=== PATIENT | male | born 1945 | race Two or more races ===

== ENCOUNTER 2023-03-09 14:24 | Inpatient (IN) | payer OTHER, MEDICAID ==
[~2023-03-09] VITALS: Ht 182.9 cm; Wt 91.5 kg
[2023-03-09 15:13] LABS: Basophils # (auto) 0 10 ^3/uL (0-0.2); Basophils % (auto) 0.1 % (0.0-2.0); Eosinophils # (auto) 0 10 ^3/uL (0-0.8); Hematocrit 33.8 % (41.0-53.0); Lymphocytes # (auto) 0.4 10 ^3/uL (0.4-5.4); Lymphocytes % (auto) 3.7 % (10.0-50.0); Mean Corpuscular Hemoglobin 28.4 pg (28.0-32.0); Mean Corpuscular Hgb Conc. 32.5 g/dL (32.0-36.0); Mean Corpuscular Volume 87.3 fL (80.0-100.0); Monocytes # (auto) 1.3 10 ^3/uL (0-1.3); Monocytes % (auto) 11.6 % (0.0-12.0); Neutrophils # (auto) 9.5 10 ^3/uL (1.6-8.6); Neutrophils % (auto) 84.6 % (37.0-80.0); Nucleated Red Blood Cells % 0.1 %; Red Blood Cells 3.87 10^6/uL (4.5-5.90); Red Cell Distribution Width 16.1 % (11.8-14.3); White Blood Cell 11.2 10^3/uL (4.4-10.8)
[2023-03-09 15:39] LABS: Albumin 3.3 g/dL (3.2-4.8); Alkaline Phosphatase 150 U/L (46-116); Anion Gap 9 (5-15); Aspartate Aminotransferase 26 U/L (13-40); BUN/Creatinine Ratio 22.6 (10.0-20.0); Blood Urea Nitrogen 19 mg/dL (9-23); Calcium 8.1 mg/dL (8.7-10.4); Carbon Dioxide 23 mmol/L (20-30); Chloride 103 mmol/L (98-107); Creatine Kinase IFCC 743 U/L (46-171); Glucose 204 mg/dL (74-106); Magnesium 1.6 mg/dL (1.6-2.6); Potassium 3.3 mmol/L (3.5-5.1); Sodium 135 mmol/L (136-145)
[2023-03-09 15:40] LABS: Alanine Aminotransferase < 9 U/L (7-40); Bilirubin, Total 1.5 mg/dL (0.2-1.0); Total Protein 5.6 g/dL (5.7-8.2)
[2023-03-09 16:09] LABS: Lactic Acid w/Reflex 2.3 mmol/L (0.4-2.0)
[2023-03-09 16:26] VITALS: PULSE 83; RESP 23; O2SAT 98
[2023-03-09 17:14] LABS: INR > 8.0 (0.9-1.15)
[2023-03-09] MEDS ORDERED: phytonadione 10 MG in SODIUM CHL 0.9% 50 ML IV ONE (17:30)
[2023-03-09] MEDS ORDERED: ONDANSETRON HCL 4 MG/2 ML VIAL IV ONE (18:00)
[2023-03-09 20:40] VITALS: PULSE 83; RESP 21; O2SAT 96
[2023-03-09] MEDS ORDERED: MORPHINE SULFATE INJ 2 MG/ml SYRG IV PRN (23:00)
[2023-03-09] MEDS ORDERED: PANTOPRAZOLE 40mg/50ML NS AE 50 ML IV ONE (23:00)
[2023-03-09] MEDS ORDERED: NITROGLYCERIN 0.4 MG SL TAB SL PRN (23:00)
[2023-03-09] MEDS: SODIUM CHLORIDE 0.9% 1,000 ML IV SCH (23:29)
[2023-03-10] VITALS (13 sets, daily range): BP systolic 136–154; BP diastolic 7–83; PULSE 58–90; RESP 16–23; TEMP 97.3–98.4; O2SAT 95–98
[2023-03-10] MEDS ORDERED: POTASSIUM EFFERVESENT TAB 25 MEQ PO ONE (01:15)
[2023-03-10 04:25] LABS: Urine Amorphous Crystal FEW /hpf (None Seen); Urine Bacteria NONE SEEN /hpf (None Seen); Urine Blood 3+ /uL (Negative); Urine Clarity HAZY (Clear); Urine Color Yellow (Yellow); Urine Mucus FEW (None Seen); Urine Protein, UAD 1+ (Negative); Urine Specific Gravity 1.026 (1.001-1.035); Urine WBC 4 /hpf (0 - 3)
[2023-03-10] MEDS ORDERED: WARF-112 PO (07:06)
[2023-03-10] MEDS ORDERED: TAMS0.4C36 PO (07:06)
[2023-03-10] MEDS: SODIUM CHLORIDE 0.9% 1,000 ML IV SCH ×3 (09:00→11:00)
[2023-03-10 09:22] LABS: Basophils # (auto) 0 10 ^3/uL (0-0.2); Basophils % (auto) 0.1 % (0.0-2.0); Eosinophils # (auto) 0 10 ^3/uL (0-0.8); Hematocrit 31.2 % (41.0-53.0); Hemoglobin 10.4 g/dL (13.5-17.5); Lymphocytes # (auto) 0.7 10 ^3/uL (0.4-5.4); Lymphocytes % (auto) 8.8 % (10.0-50.0); Mean Corpuscular Hemoglobin 28.6 pg (28.0-32.0); Mean Corpuscular Hgb Conc. 33.2 g/dL (32.0-36.0); Mean Corpuscular Volume 86.2 fL (80.0-100.0); Monocytes # (auto) 0.8 10 ^3/uL (0-1.3); Monocytes % (auto) 10.5 % (0.0-12.0); Neutrophils # (auto) 6.2 10 ^3/uL (1.6-8.6); Neutrophils % (auto) 80.6 % (37.0-80.0); Nucleated Red Blood Cells % 0.1 %; Red Blood Cells 3.62 10^6/uL (4.5-5.90); White Blood Cell 7.7 10^3/uL (4.4-10.8)
[2023-03-10 09:35] LABS: Chloride 104 mmol/L (98-107); Potassium 3.7 mmol/L (3.5-5.1); Sodium 138 mmol/L (136-145)
[2023-03-10 09:36] LABS: Anion Gap 7 (5-15); Calcium 8.4 mg/dL (8.5-10.1); Carbon Dioxide 27 mmol/L (20-30)
[2023-03-10 09:41] LABS: BUN/Creatinine Ratio 22.2 (10.0-20.0); Blood Urea Nitrogen 14 mg/dL (9-23); Glucose 121 mg/dL (74-106)
[2023-03-10 09:44] LABS: INR 1.44 (0.9-1.15); Prothrombin Time 14.8 sec (9.3-11.8)
[2023-03-10] MEDS: TAMSULOSIN HYDROCHLORIDE 0.4 MG CAP PO SCH (10:29)
[2023-03-10] MEDS: METOPROLOL TARTRATE 25 MG TAB PO SCH ×2 (10:29→22:00)
[2023-03-10 17:11] LABS: Hematocrit 29.7 % (41.0-53.0); Hemoglobin 9.9 g/dL (13.5-17.5)
[2023-03-10] MEDS: ONDANSETRON HCL 4 MG/2 ML VIAL IV PRN (18:31)
[2023-03-10] MEDS ORDERED: ENOXAPARIN SOD 40 MG/0.4 ML SYRINGE SC ONE ×2 (20:00→22:02)
[2023-03-10] MEDS: ATORVASTATIN 20 MG TAB PO SCH (22:09)
[2023-03-11] VITALS (7 sets, daily range): BP systolic 100–140; BP diastolic 67–73; PULSE 53–86; RESP 16–22; TEMP 97.5–98.6; O2SAT 95–98
[2023-03-11 00:30] LABS: Hematocrit 30.5 % (41.0-53.0)
[2023-03-11 06:58] LABS: Basophils # (auto) 0 10 ^3/uL (0-0.2); Basophils % (auto) 0.1 % (0.0-2.0); Eosinophils # (auto) 0 10 ^3/uL (0-0.8); Eosinophils % (auto) 0.1 % (0.0-7.0); Hemoglobin 10.2 g/dL (13.5-17.5); Lymphocytes # (auto) 0.6 10 ^3/uL (0.4-5.4); Lymphocytes % (auto) 8.1 % (10.0-50.0); Mean Corpuscular Hemoglobin 28.9 pg (28.0-32.0); Mean Corpuscular Volume 87.6 fL (80.0-100.0); Monocytes # (auto) 0.7 10 ^3/uL (0-1.3); Monocytes % (auto) 10.6 % (0.0-12.0); Neutrophils # (auto) 5.7 10 ^3/uL (1.6-8.6); Neutrophils % (auto) 81.1 % (37.0-80.0); Nucleated Red Blood Cells % 0.1 %; Red Blood Cells 3.54 10^6/uL (4.5-5.90); Red Cell Distribution Width 15.9 % (11.8-14.3)
[2023-03-11 07:13] LABS: Anion Gap 6 (5-15); Carbon Dioxide 27 mmol/L (20-30); Chloride 104 mmol/L (98-107); Potassium 3.5 mmol/L (3.5-5.1); Sodium 137 mmol/L (136-145)
[2023-03-11 07:19] LABS: BUN/Creatinine Ratio 15.8 (10.0-20.0); Blood Urea Nitrogen 9 mg/dL (9-23); Glucose 97 mg/dL (74-106)
[2023-03-11] MEDS: TAMSULOSIN HYDROCHLORIDE 0.4 MG CAP PO SCH (10:12)
[2023-03-11] MEDS: METOPROLOL TARTRATE 25 MG TAB PO SCH ×2 (10:13→21:42)
[2023-03-11] MEDS: SODIUM CHLORIDE 0.9% 1,000 ML IV SCH ×2 (10:13→21:35)
[2023-03-11] MEDS: HYDROcodone-ACET 5/325MG TAB PO PRN (13:29)
[2023-03-11] MEDS ORDERED: DOCUSATE SOD 100 MG CAP PO ONE ×2 (20:00→21:08)
[2023-03-11] MEDS ORDERED: SENNA 8.6 MG TAB ONE (21:07)
[2023-03-11] MEDS: ATORVASTATIN 20 MG TAB PO SCH (21:35)
[2023-03-11] MEDS: SENNA 8.6 MG TAB PO SCH (21:35)
[2023-03-11] MEDS: ACETAMINOPHEN 325 MG TAB PO PRN (21:40)
[2023-03-12] VITALS (7 sets, daily range): BP systolic 124–152; BP diastolic 73–84; PULSE 57–73; RESP 14–20; TEMP 97.5–98.3; O2SAT 93–97
[2023-03-12] MEDS: ONDANSETRON HCL 4 MG/2 ML VIAL IV PRN (05:55)
[2023-03-12 07:16] LABS: Basophils # (auto) 0 10 ^3/uL (0-0.2); Eosinophils # (auto) 0 10 ^3/uL (0-0.8); Eosinophils % (auto) 0.3 % (0.0-7.0); Hematocrit 31.5 % (41.0-53.0); Hemoglobin 10.3 g/dL (13.5-17.5); Lymphocytes # (auto) 0.8 10 ^3/uL (0.4-5.4); Lymphocytes % (auto) 11.9 % (10.0-50.0); Mean Corpuscular Hemoglobin 28.3 pg (28.0-32.0); Mean Corpuscular Hgb Conc. 32.7 g/dL (32.0-36.0); Mean Corpuscular Volume 86.7 fL (80.0-100.0); Monocytes # (auto) 0.6 10 ^3/uL (0-1.3); Monocytes % (auto) 9.1 % (0.0-12.0); Neutrophils # (auto) 5.5 10 ^3/uL (1.6-8.6); Neutrophils % (auto) 78.7 % (37.0-80.0); Red Blood Cells 3.63 10^6/uL (4.5-5.90); Red Cell Distribution Width 15.8 % (11.8-14.3); White Blood Cell 7.1 10^3/uL (4.4-10.8)
[2023-03-12 07:40] LABS: Chloride 102 mmol/L (98-107); Potassium 3.4 mmol/L (3.5-5.1); Sodium 136 mmol/L (136-145)
[2023-03-12 07:42] LABS: Anion Gap 6 (5-15); Calcium 8.2 mg/dL (8.5-10.1); Carbon Dioxide 28 mmol/L (20-30)
[2023-03-12 07:47] LABS: BUN/Creatinine Ratio 14.5 (10.0-20.0); Blood Urea Nitrogen 8 mg/dL (9-23); Glucose 128 mg/dL (74-106)
[2023-03-12] MEDS: METOPROLOL TARTRATE 25 MG TAB PO SCH ×2 (10:00→22:06)
[2023-03-12] MEDS: TAMSULOSIN HYDROCHLORIDE 0.4 MG CAP PO SCH (10:18)
[2023-03-12] MEDS: SODIUM CHLORIDE 0.9% 1,000 ML IV SCH ×2 (11:00→22:10)
[2023-03-12 15:46] LABS: INR 1.86 (0.9-1.15); Prothrombin Time 18.8 sec (9.3-11.8)
[2023-03-12] MEDS ORDERED: WARFARIN SODIUM 2 MG TAB PO ONE (17:39)
[2023-03-12] MEDS ORDERED: SENNA 8.6 MG TAB ONE (22:02)
[2023-03-12] MEDS: ATORVASTATIN 20 MG TAB PO SCH (22:05)
[2023-03-12] MEDS: SENNA 8.6 MG TAB PO SCH (22:06)
[2023-03-13] VITALS (8 sets, daily range): BP systolic 108–146; BP diastolic 54–89; PULSE 60–92; RESP 17–22; TEMP 97.8–98.9; O2SAT 64–100
[2023-03-13] MEDS: ONDANSETRON HCL 4 MG/2 ML VIAL IV PRN (01:34)
[2023-03-13 06:21] LABS: INR 2.22 (0.9-1.15); Prothrombin Time 22.1 sec (9.3-11.8)
[2023-03-13 06:29] LABS: Basophils # (auto) 0 10 ^3/uL (0-0.2); Basophils % (auto) 0.1 % (0.0-2.0); Eosinophils # (auto) 0 10 ^3/uL (0-0.8); Eosinophils % (auto) 0.4 % (0.0-7.0); Hematocrit 32.7 % (41.0-53.0); Hemoglobin 10.9 g/dL (13.5-17.5); Lymphocytes # (auto) 0.9 10 ^3/uL (0.4-5.4); Lymphocytes % (auto) 11.7 % (10.0-50.0); Mean Corpuscular Hemoglobin 28.7 pg (28.0-32.0); Mean Corpuscular Hgb Conc. 33.2 g/dL (32.0-36.0); Mean Corpuscular Volume 86.5 fL (80.0-100.0); Monocytes # (auto) 0.5 10 ^3/uL (0-1.3); Monocytes % (auto) 6.7 % (0.0-12.0); Neutrophils # (auto) 6.4 10 ^3/uL (1.6-8.6); Neutrophils % (auto) 81.1 % (37.0-80.0); Nucleated Red Blood Cells % 0.1 %; Red Blood Cells 3.78 10^6/uL (4.5-5.90); White Blood Cell 7.9 10^3/uL (4.4-10.8)
[2023-03-13 06:38] LABS: Anion Gap 4 (5-15); Carbon Dioxide 28 mmol/L (20-30); Chloride 102 mmol/L (98-107); Potassium 3.8 mmol/L (3.5-5.1); Sodium 134 mmol/L (136-145)
[2023-03-13 06:39] LABS: Calcium 7.8 mg/dL (8.7-10.4)
[2023-03-13 06:44] LABS: BUN/Creatinine Ratio 12.7 (10.0-20.0); Blood Urea Nitrogen 7 mg/dL (9-23); Glucose 113 mg/dL (74-106)
[2023-03-13] MEDS: METOPROLOL TARTRATE 25 MG TAB PO SCH ×2 (10:56→21:03)
[2023-03-13] MEDS: TAMSULOSIN HYDROCHLORIDE 0.4 MG CAP PO SCH (10:57)
[2023-03-13] MEDS: SODIUM CHLORIDE 0.9% 1,000 ML IV SCH ×3 (10:57→21:07)
[2023-03-13] MEDS: ACETAMINOPHEN 325 MG TAB PO PRN (12:44)
[2023-03-13] MEDS: LACTULOSE 20Gm/30ML SOLN PO PRN (16:54)
[2023-03-13] MEDS ORDERED: WARFARIN SODIUM 2 MG TAB PO ONE (17:00)
[2023-03-13 18:32] LABS: Urine Bacteria FEW /hpf (None Seen); Urine Blood Negative /uL (Negative); Urine Clarity Clear (Clear); Urine Color Colorless (Yellow); Urine Protein, UAD Negative (Negative); Urine Specific Gravity 1.006 (1.001-1.035); Urine WBC 2 /hpf (0 - 3); Urine pH 6.5 (5.0-8.0)
[2023-03-13] MEDS: SENNA 8.6 MG TAB PO SCH (20:57)
[2023-03-13] MEDS: ATORVASTATIN 20 MG TAB PO SCH (20:57)
[2023-03-14] VITALS (9 sets, daily range): BP systolic 96–108; BP diastolic 53–61; PULSE 60–76; RESP 16–20; TEMP 97.5–98.5; O2SAT 91–99
[2023-03-14] MEDS: HYDROcodone-ACET 5/325MG TAB PO PRN ×3 (03:18→21:30)
[2023-03-14] MEDS: ACETAMINOPHEN 325 MG TAB PO PRN (06:13)
[2023-03-14 06:47] LABS: Chloride 106 mmol/L (98-107); Potassium 3.3 mmol/L (3.5-5.1); Sodium 138 mmol/L (136-145)
[2023-03-14 06:48] LABS: Anion Gap 4 (5-15); Calcium 7.6 mg/dL (8.7-10.4); Carbon Dioxide 28 mmol/L (20-30)
[2023-03-14 06:53] LABS: Glucose 90 mg/dL (74-106)
[2023-03-14 06:54] LABS: BUN/Creatinine Ratio 11.3 (10.0-20.0); Blood Urea Nitrogen 7 mg/dL (9-23); INR 3.24 (0.9-1.15); Prothrombin Time 31.5 sec (9.3-11.8)
[2023-03-14 07:21] LABS: Basophils # (auto) 0 10 ^3/uL (0-0.2); Basophils % (auto) 0.1 % (0.0-2.0); Eosinophils # (auto) 0.1 10 ^3/uL (0-0.8); Hematocrit 29.5 % (41.0-53.0); Hemoglobin 9.9 g/dL (13.5-17.5); Lymphocytes # (auto) 1.1 10 ^3/uL (0.4-5.4); Lymphocytes % (auto) 15.9 % (10.0-50.0); Mean Corpuscular Hemoglobin 29.1 pg (28.0-32.0); Mean Corpuscular Hgb Conc. 33.7 g/dL (32.0-36.0); Mean Corpuscular Volume 86.4 fL (80.0-100.0); Monocytes # (auto) 0.5 10 ^3/uL (0-1.3); Monocytes % (auto) 6.5 % (0.0-12.0); Neutrophils # (auto) 5.5 10 ^3/uL (1.6-8.6); Neutrophils % (auto) 76.5 % (37.0-80.0); Red Blood Cells 3.42 10^6/uL (4.5-5.90); Red Cell Distribution Width 15.8 % (11.8-14.3); White Blood Cell 7.2 10^3/uL (4.4-10.8)
[2023-03-14] MEDS: METOPROLOL TARTRATE 25 MG TAB PO SCH ×2 (09:26→22:08)
[2023-03-14] MEDS: TAMSULOSIN HYDROCHLORIDE 0.4 MG CAP PO SCH (09:26)
[2023-03-14] MEDS: LACTULOSE 20Gm/30ML SOLN PO PRN (09:32)
[2023-03-14] MEDS: LOPERAMIDE HCL 2 MG CAP/TAB PO PRN (16:47)
[2023-03-14] MEDS: SODIUM CHLORIDE 0.9% 1,000 ML IV SCH ×2 (16:47→23:00)
[2023-03-14] MEDS: SENNA 8.6 MG TAB PO SCH (22:00)
[2023-03-14] MEDS: ATORVASTATIN 20 MG TAB PO SCH (22:07)
[2023-03-15 05:00] VITALS: BP 123/61; PULSE 57; RESP 16; TEMP 98.3; O2SAT 90
[2023-03-15 07:02] LABS: INR 3.57 (0.9-1.15); Prothrombin Time 34.5 sec (9.3-11.8)
[2023-03-15 08:00] VITALS: BP 134/66; PULSE 54; PULSE 55; RESP 20; RESP 21; TEMP 98.6; O2SAT 97
[2023-03-15] MEDS: SODIUM CHLORIDE 0.9% 1,000 ML IV SCH ×2 (08:26→17:58)
[2023-03-15] MEDS: TAMSULOSIN HYDROCHLORIDE 0.4 MG CAP PO SCH (09:36)
[2023-03-15] MEDS: METOPROLOL TARTRATE 25 MG TAB PO SCH (09:36)
[2023-03-15 12:00] VITALS: BP 107/58; PULSE 63; RESP 20; TEMP 98.8; O2SAT 95
[2023-03-15 13:16] LABS: COVID19 ANTIGEN SOFIA FIA NEGATIVE (NEGATIVE)
[2023-03-15 16:00] VITALS: BP 132/80; PULSE 65; RESP 22; TEMP 98.2; O2SAT 95
[2023-03-15] MEDS: LOPERAMIDE HCL 2 MG CAP/TAB PO PRN (17:58)
[2023-03-15 22:00] VITALS: BP 120/60; PULSE 60; RESP 19; TEMP 98.1; O2SAT 97
[2023-03-15 22:28] VITALS: BP 120/60; PULSE 65; RESP 19; TEMP 98.1; O2SAT 97
== END 2023-03-15 23:30 | DRG 562 ==
LOC: EDBD 14:24 → ER 14:24 → TELE 23:08 → TELE-EAST 03-10 06:19
PROVIDERS: ADMIT Nurse Practitioner Family; ATTEND Nurse Practitioner Family
PROC: 30233K1 Transfusion of Nonautologous Frozen Plasma into Peripheral Vein, Percutaneous Approach (ICD-10-PCS; principal; 2023-03-10)
DX: S42.292A Other displaced fracture of upper end of left humerus, initial encounter for closed fracture (principal); I21.A1 Myocardial infarction type 2; D68.69 Other thrombophilia; M62.82 Rhabdomyolysis; E87.20 Acidosis, unspecified; E87.6 Hypokalemia; K21.9 Gastro-esophageal reflux disease without esophagitis; T45.515A Adverse effect of anticoagulants, initial encounter; H91.92 Unspecified hearing loss, left ear; I10 Essential (primary) hypertension; N40.0 Benign prostatic hyperplasia without lower urinary tract symptoms; Z20.822 Contact with and (suspected) exposure to COVID-19; I48.91 Unspecified atrial fibrillation; Z86.718 Personal history of other venous thrombosis and embolism; Z79.01 Long term (current) use of anticoagulants; Z98.84 Bariatric surgery status; Y92.89 Other specified places as the place of occurrence of the external cause
CPT/HCPCS: 36415; 70450; 71045; 71250; 72125; 73030; 74176; 80048; 80053; 81001; 82270; 82550; 83605; 83735; 83880; 84484; 85014; 85018; 85025; 85610; 85730; 86850; 86900; 86901; 87040; 87086; 87177; 87426; 93005; 93306; 93971; 97110; 97116; 97163; G0378; J2405; J3430